=== PATIENT | male | born 1980 | race Caucasian/White ===

== ENCOUNTER → 2017-01-23 | Outpatient (CLI) | payer BC ==
--- NOTE | 2017-01-23 15:43 | CR ---
EXAMINATION: Two-view chest (PA and Lateral views). HISTORY: Cough. FINDINGS: The trachea is midline. The cardiomediastinal silhouette is within normal limits. No pulmonary infil trates, effusions or pneumothorax. Osseous structures appear unremarkable. IMPRESSION: No acute cardiopulmonary process.
== END ==
LOC: MW.CHFP 14:12
PROVIDERS: ATTEND Emergency Medicine
DX: R05 Cough (principal)
CPT/HCPCS: 36415; 71020; 71020-26; 86615

== ENCOUNTER 2023-01-23 16:48 | Emergency (ER) | payer OTHER, BC ==
[2023-01-23] MEDS ORDERED: Diphtheria,Pertussis(Acell),Tetanus Vaccine 0.5 ML Syringe IM ONE (16:59)
[2023-01-23] MEDS ORDERED: Lidocaine 1% PF 2 ML SDV INJECT ONE (16:59)
[2023-01-23] MEDS ORDERED: Amoxicillin/Clavulanate K 875-125 MG Tab PO ONE (16:59)
[2023-01-23] MEDS ORDERED: Acetaminophen/HYDROcodone 325-5 MG Tab PO ONE (17:10)
[2023-01-23] MEDS ORDERED: Acetaminophen 500 MG Tab PO ONE (17:30)
== END 2023-01-23 18:56 | disposition home or self-care (01) ==
LOC: MW.ED 16:48
DX: S02.40CA Maxillary fracture, right side, initial encounter for closed fracture (principal); S01.511A Laceration without foreign body of lip, initial encounter; Z23 Encounter for immunization; W20.8XXA Other cause of strike by thrown, projected or falling object, initial encounter
CPT/HCPCS: 12011; 70450; 70486; 90471; 90715; 99283; A9270; J3490